=== PATIENT | male | born 1955 | race Two or more races ===

== ENCOUNTER 2020-09-23 02:14 | Emergency (ER) | payer OTHER ==
[~2020-09-23] VITALS: Ht 160 cm; Wt 68.0 kg
--- NOTE | 2020-09-23 02:30 | NUR ---
ED Nurse Note: Pt walked in from home. Ambulates with a steady gait. Vitals are stable on RA. Pt is axox4. Pt is co of 7/10 chest pain, mostly when he palpates his own chest starting at about 11:45 this evening. He is also saying that he has been feeling dizzy for 2 weeks prior. Pt is able to speak in full sentances and breathing is even and unlabored. EKG done, labs sent, ER assesed pt at bedside.
[2020-09-23 02:37] VITALS: BP 139/85
--- NOTE | 2020-09-23 03:05 | Emergency Room Report ---
History of Present Illness General Chief Complaint: Chest Pain Source: Patient Present Illness HPI Patient has had dizziness intermittently for the last 3 weeks. Yesterday he lost balance when he was walking. He is thinking that it might be vertigo. The dizziness has been intermittent. He feels anxious when this occurs. He denies any spinning sensation. He denies near loss of consciousness. He has diff iculty describing the dizziness. Tonight at midnight he had an episode of dizziness with symptoms headache on the left-hand side associated with chest pain radiating to his left arm. It was mainly that when he pushed on his chest that there was pain in that spot and that this would recreated the pain. He rates the pain 7/10. It is aching and worse when he applies pressure to his chest. There are some radiation to his left arm. He also complains about headache with left temporal area discomfort which is pressure. This is less severe than the chest pain. Risk factor possible high cholesterol all others negative. Patient denies exposure to Covid positive contacts. No fevers, chills, sore throat, palpitations, nausea, vomiting, diarrhea, dysuria, abdominal pain, shortness of breath, joint pain, rashes, depression, visual changes. He has decreased hearing and wears hearing aids. Allergies: Coded Allergies: No Known Allergies (Unverified , 09/23/20) COVID-19 Screening Contact w/high risk pt: No Experienced COVID-19 symptoms?: No COVID-19 Testing performed INTELLIGENCE APPLICATIONS: No Patient History Past Medical History: see triage record Social History: Denies: smoking Social History Narrative Lives in [place] Reviewed Nursing Documentation: PMH: Agreed; PSxH: Agreed Nursing Documentation-PM Past Medical History: No Stated History Physical Exam Vital Signs Date Time Temp Pulse Resp B/P (MAP) Pulse Ox O2 Delivery O2 Flow Rate FiO2 09/23/20 02:27 97.5 69 18 140/86 (104) 97 Room Air Sp02 EP Interpretation: reviewed, normal General Appearance: well appearing, no apparent distress, GCS 15 Head: normocephalic Eyes: bilateral eye normal inspection, bilateral eye PERRL, bilateral eye EOMI ENT: moist mucus membranes, other - Decreased hearing on left side Neck: full range of motion, supple Respiratory: lungs clear, normal breath sounds Cardiovascular #1: regular rate, rhythm, no edema Cardiovascular #2: 2+ radial (R) Gastrointestinal: normal inspection, normal bowel sounds, non tender, no mass, non-distended Musculoskeletal: back normal, normal range of motion, gait/station normal Neurologic: alert, motor strength/tone normal, pressfitter III-XII nml as tested, oriented x3, sensory intact, cerebellar normal, speech normal Psychiatric: mood/affect normal - Slightly anxious Skin: no rash, warm/dry Medical Decision Making Diagnostic Impression: Primary Impression: Chest wall pain Additional Impression: Dizziness ER Course Patient presents with 2 problems: Dizziness and chest pain. The chest pain is recreated by pressure on his chest however we need to exclude cardiac cause. EKG and labs will be performed. The dizziness is slightly more complex. He feels it might be vertigo he says that he feels ill when this happens rather than spinning. Differential includes anxiety, vertigo, near syncope, TIA amongst others. Evaluation similar to their cardiac but CT of the head is i ndicated. In addition patient is placed on a water fitness instructor. Toradol will be given. Patient stated advised against Toradol as he has proteinuria. Tylenol ordered. (Initially he did not want Tylenol but then agreed.) EKG NSR, normal. CXR - normal. CBC normal. CMP normal. Slightly elevated BUN. Patient improved after Tylenol - both less pain and less dizziness. Discussed with patient results. Discussed the need for outpatient reevaluation by his private physician. No apparent medical emergency at this time. Patient is stable for outpatient observation and treatment. Laboratory Tests Test 09/23/20 03:40 White Blood Count 7.1 K/UL (4.8-10.8) Red Blood Count 4.66 M/UL (4.70-6.10) L Hemoglobin 15.6 G/DL (14.2-18.0) Hematocrit 40.7 % (42.0-52.0) L Mean Corpuscular Volume 87 FL (80-99) Mean Corpuscular Hemoglobin 33.4 PG (27.0-31.0) H Mean Corpuscular Hemoglobin Concent 38.2 G/DL (32.0-36.0) H Red Cell Distribution Width 12.4 % (11.6-14.8) Platelet Count 185 K/UL (150-450) Mean Platelet Volume 7.6 FL (6.5-10.1) Neutrophils (%) (Auto) 58.1 % (45.0-75.0) Lymphocytes (%) (Auto) 32.0 % (20.0-45.0) Monocytes (%) (Auto) 7.6 % (1.0-10.0) Eosinophils (%) (Auto) 0.9 % (0.0-3.0) Basophils (%) (Auto) 1.4 % (0.0-2.0) Prothrombin Time 12.7 SEC (9.30-11.50) H Prothrombin Time INR 1.2 (0.9-1.1) H Activated Partial Thromboplast Time 25 SEC (23-33) Sodium Level 136 MMOL/L (136-145) Potassium Level 3.6 MMOL/L (3.5-5.1) Chloride Level 101 MMOL/L (98-107) Carbon Dioxide Level 31 MMOL/L (21-32) Anion Gap 4 mmol/L (5-15) L Blood Urea Nitrogen 20 mg/dL (7-18) H Creatinine 1.1 MG/DL (0.55-1.30) Estimated Glomerular Filtration Rate > 60 mL/min (>60) Glucose Level 126 MG/DL (74-106) H Calcium Level 9.1 MG/DL (8.5-10.1) Total Bilirubin 0.7 MG/DL (0.2-1.0) Aspartate Amino Transferase (AST) 32 U/L (15-37) Alanine Aminotransferase (ALT) 77 U/L (12-78) Alkaline Phosphatase 104 U/L (46-116) Total Creatine Kinase 62 U/L (26-308) Troponin I 0.000 ng/mL (0.000-0.056) Pro-B-Type Natriuretic Peptide 59 pg/mL (0-125) Total Protein 8.0 G/DL (6.4-8.2) Albumin 4.0 G/DL (3.4-5.0) Globulin 4.0 g/dL Albumin/Globulin Ratio 1.0 (1.0-2.7) EKG Diagnostic Results Rate: normal Rhythm: NSR ST Segments: no acute changes Rhythm Strip Diag. Results EP Interpretation: yes Rhythm: NSR, no PVC's, no ectopy Chest X-Ray Diagnostic Results Chest X-Ray Diagnostic Results : Chest X-Ray Ordered: Yes # of Views/Limited/Complete: 1 View Indication: Chest Pain EP Interpretation: Yes Interpretation: no consolidation, no effusion, no pneumothorax Impression: No acute disease Electronically Signed by: Electronically signed by Jerod Sandhu MD CT/MRI/US Diagnostic Results CT/MRI/US Diagnostic Results : Imaging Test Ordered: Head Impression No intracranial pathology Last Vital Signs Date Time Temp Pulse Resp B/P (MAP) Pulse Ox O2 Delivery O2 Flow Rate FiO2 09/23/20 04:56 88 14 135/86 98 Room Air 09/23/20 03:53 97.6 Status: improved Disposition: HOME, SELF-CARE Condition: Improved Scripts Hydroxyzine Pamoate (VISTARIL) 25 Mg Capsule 25 MG PO Q8HR PRN for for dizziness, #10 CAP Prov: Jerod Sandhu MD 09/23/20 Acetaminophen (Tylenol) 325 Mg Tablet 650 MG ORAL Q6H PRN for Prn Pain/Headache/Temp > 101, #20 TAB 0 Refills Prov: Jerod Sandhu MD 09/23/20 Referrals: [facility],REFERRING (PCP) Jerod Sandhu MD Sep 23, 2020 03:05
[2020-09-23] MEDS ORDERED: Ketorolac 30mg Inj IV ONE (03:15)
[2020-09-23] MEDS: Acetaminophen 500mg (ES) tab ORAL ONE (03:16)
[2020-09-23 03:49] LABS: ANION GAP 4 mmol/L (5-15); BLOOD UREA NITROGEN 20 mg/dL (7-18); CALCIUM 9.1 MG/DL (8.5-10.1); CARBON DIOXIDE 31 MMOL/L (21-32); CHLORIDE 101 MMOL/L (98-107); CREATININE 1.1 MG/DL (0.55-1.30); POTASSIUM 3.6 MMOL/L (3.5-5.1); SODIUM 136 MMOL/L (136-145)
[2020-09-23 03:50] LABS: INR 1.2 (0.9-1.1)
[2020-09-23 03:51] LABS: BASOPHILS % (AUTO) 1.4 % (0.0-2.0); EOSINOPHILS % (AUTO) 0.9 % (0.0-3.0); HEMATOCRIT 40.7 % (42.0-52.0); HEMOGLOBIN 15.6 G/DL (14.2-18.0); MEAN CORPUSCULAR VOLUME 87 FL (80-99); MONOCYTES % (AUTO) 7.6 % (1.0-10.0); NEUTROPHILS % (AUTO) 58.1 % (45.0-75.0); PLATELET COUNT 185 K/UL (150-450); RED BLOOD COUNT 4.66 M/UL (4.70-6.10); RED CELL DISTRIBUTION WIDTH 12.4 % (11.6-14.8); WHITE BLOOD COUNT 7.1 K/UL (4.8-10.8)
[2020-09-23 04:00] LABS: ALANINE AMINOTRANSFERASE 77 U/L (12-78); ALKALINE PHOSPHATASE 104 U/L (46-116); ASPARTATE AMINO TRANSFERASE 32 U/L (15-37); BILIRUBIN,TOTAL 0.7 MG/DL (0.2-1.0); CREATINE KINASE 62 U/L (26-308)
--- NOTE | 2020-09-23 04:19 | Diagnostic Imaging Report ---
EXAM: CT Head Without Intravenous Contrast CLINICAL HISTORY: DIZZY TECHNIQUE: Axial computed tomography images of the head/brain without intravenous contrast. CTDI is 53.40 mGy and DLP is 965.40 mGy-cm. One or more of the following dose reduction techniques were used: automated exposure control, adjustment of the mA and/or kV according to patient size, use of iterative reconstruction technique. COMPARISON: No relevant prior studies available. FINDINGS: Brain: No hemorrhage, extra-axial fluid collection, mass effect, or edema. Ventricles: Unremarkable. Bones/joints: Unremarkable. No fracture. Soft tissues: Unremarkable. Sinuses: Unremarkable as visualized. Mastoid air cells: Unremarkable as visualized. IMPRESSION: 1. No acute intracranial abnormality.
[2020-09-23] MEDS ORDERED: TYLENOL325 MG ORAL (04:23)
[2020-09-23] MEDS ORDERED: VISTARIL25 M1 PO (04:23)
--- NOTE | 2020-09-23 04:50 | NUR ---
ER DISCHARGE NOTE: Patient is cleared to be discharged per ERMD, pt is aox4, on room air, with stable vital signs. pt was given dc and prescription instructions, pt was able to verbalize understanding, pt id band and iv site removed without complications. pt is able to ambulate with steady gait. pt took all belongings.
[2020-09-23 04:56] VITALS: BP 135/86
--- NOTE | 2020-09-23 09:00 | Diagnostic Imaging Report ---
Indication: Chest pain Technique: One view of the chest Comparison: none Findings: Lungs and pleural spaces are clear. Heart size is normal. Impression: No acute process
== END 2020-09-23 04:50 | disposition home or self-care (01) ==
LOC: EMR 02:58
DX: R07.89 Other chest pain (principal); R42 Dizziness and giddiness
CPT/HCPCS: 36415; 70450; 71045; 80053; 82550; 83880; 84484; 85025; 85610; 85730; 93005; 96374; 99284; J1885